=== PATIENT | female | born 1960 ===

== ENCOUNTER 2024-10-03 03:36 | Outpatient (CLI) | payer OTHER, SELFPAY ==
--- NOTE | 2024-10-03 23:57 | PDOC.EEG ---
Neurology EEG EEG: [facility] Department of Neurology EEG REPORT Date of Recordin10/03/24 Interpreting Physician: Dr. Jailene Zhong PCP/Referring Provider: Dr. Aissatou Paredes Reason for study: Rashi Jimenez is a 63 year-old with spells of FRENCH and olfatorcy and gustatory hallucinations concerning for seizure. Current Medications: Albuterol PRN Carboxymethylcellulose eye drops Cyclobenzaprene 10 mg tidPRN Ciclofenac 1% gel Famotidine 20 mg bid PRN Gabapentin 300 mg QHS Lansoprazole 30 mg Levetiracetam 250mg BIDm (pt. has not started these as of the EEG) Mg++ 400 mg Vitamins and sinus rinse. Sumitriptan 25 mg for migraines Topiramate 50 mg for migraines Ubrogepant 50 mg for migraines Pantoprazole 40 mg QAM METHODS: A 21 channel digitized electroencephalogram was performed in the [facility]. The 10/20 international system of electrode placement was used and bipolar and referential electrode montages were recorded. In addition to EEG the patient was monitored for EKG and lateral/vertical eye movements. Activation procedures of photic stimulation and hyperventilation were performed if applicable. Video was used during activation procedures and during events where applicable. The duration of the recording was ~60 minutes. DESCRIPTION OF EEG: The patient was noted to be awake, drowsy, and asleep during the recording. During maximal wakefulness a 9-Hz posterior background rhythm was present which was well-modulated, symmetrical, reactive to eye opening, and of moderate voltage. With eye opening the background activity changed to a low voltage mixture of alpha, beta, and occasional theta range frequencies. Faster frequencies were present in the bilateral anterior head regions. There was a normal anterior-posterior voltage gradient. During drowsiness, there was attenuation of the posterior dominant background rhythm and vertex waves. Stage II sleep was present with symmetrical sleep spindles, K-complexes, and vertex waves. Note sleep transition was very rapid. Activating Procedures: Photic stimulation was performed which produced a asymmetrical posterior driving response at various flash frequencies in the right hemisphere only. Hyperventilation was performed with moderate effort and produced no physiological slowing of the background. EKG: EKG revealed normal sinus rhythm. INTERPRETATION: This EEG is abnormal due to asymmetic driving response Patient also transitioned into sleep rather rapidly. PRIOR EEG: none CLINICAL CORRELATION: The asymmetric driving response could represent an area of focal cerebral dysfunction in the left hemisphere. No definite epileptiform activity was present. Sleep transition was rapid which could indicate the presence of a underlying sleep disorder. Epilepsy remains a clinical diagnosis and a normal EEG does not rule out epilepsy. Clinical correlation is advised. Jailene Zhong MD
== END 2024-10-03 03:37 | disposition home or self-care (01) ==
PROVIDERS: PCP Internal Medicine; Visit Provider Internal Medicine
DX: R94.01 Abnormal electroencephalogram [EEG] (principal); R56.9 Unspecified convulsions
CPT/HCPCS: 95819